=== PATIENT | male | born 1980 | race Caucasian/White ===

== ENCOUNTER 2021-01-28 14:34 | Emergency (ER) | payer OTHER ==
[2021-01-28 14:54] VITALS: BP 167/105; PULSE 88; TEMP 97.5; BMI 29.4
== END 2021-01-28 18:50 | disposition home or self-care (01) ==
LOC: JER 14:34
DX: R51.9 Headache, unspecified (principal); V89.2XXA Person injured in unspecified motor-vehicle accident, traffic, initial encounter; Y92.9 Unspecified place or not applicable
CPT/HCPCS: 70450-TC; 72125-TC; 99284-25